=== PATIENT | male | born 2005 | race Caucasian/White ===

== ENCOUNTER 2025-01-02 20:05 | Inpatient (IN) ==
--- NOTE | 2025-01-02 20:15 | Emergency Department Note ---
Impression & Plan Open fracture of left forearm, Injury of forearm, left, Left forearm pain, Injury while playing basketball, Pain, Unspecified acquired deformity of left forearm, Fracture of radial shaft, left, open, Fracture of shaft of radius with ulna, open ED Provider Note CHIEF COMPLAINT: Left arm pain HISTORY OF PRESENTING ILLNESS: The patient is a 19-year-old male who presents to the emergency department state that he injured his left forearm while playing basketball. He states that he had come down and awkwardly fell on his outstretched left hand. He reports that there was blood and a significant amount of pain. Notes obvious deformity. A large Rex wrap is applied in triage. Patient confirms significant pain radiating up and down the arm, numbness and tingling, and is in obvious discomfort. No other injury, he did not hit his head, no LOC, the patient is not on blood thinners. REVIEW OF SYSTEMS: See HPI for pertinent positives and pertinent negatives. ALLERGIES: NKDA MEDICATIONS: Denies currently taking medications. PAST MEDICAL HISTORY: Denies past medical history. PHYSICAL EXAM: VITALS: Vitals are noted on the nurse's note and reviewed by myself. Vital signs stable. GENERAL: 19-year-old male, in obvious discomfort and pain, left arm wrapped, in no acute distress, nondiaphoretic, well-developed well-nourished. SKIN: Capillary refill less than 2 seconds. HEENT: Normocephalic. PERRLA. EOMI. Nares patent. Mucous membranes moist. Neck is supple without nuchal rigidity. MUSCULOSKELETAL: Obvious deformity appreciated left forearm. 1 cm open laceration from fracture appreciated on the forearm. 2+ radial ulnar pulses palpated. Patient is able to wiggle his fingers. Physical exam is extremely limited due to discomfort. Patient confirms that he can feel me touching him on all of his digits. Patient reports decrease sensation to his pinky and ring finger. Patient is bracing his left arm for comfort. No tenderness upon palpation to the elbow, humerus, or shoulder. NEURO: Patient was alert and oriented. No focal neurological deficits. DIFFERENTIAL DIAGNOSIS: Open fracture, fracture, dislocation, contusion, laceration, sprain, strain, among others. ED COURSE AND MEDICAL DECISION MAKING: HISTORY FROM INDEPENDENT HISTORIAN: The patient himself and his friends. MEDICATIONS GIVEN: Fentanyl 100 mcg IV, morphine 4 mg IV, Zofran 4 mg IV, Ancef 2 g, fentanyl 50 mcg IV, morphine 2 mg IV INTERPRETATION OF LABS: I interpreted the labs with full lab results as below in the lab section of this note. Pertinent lab results discussed in the MDM section below. INTERPRETATION OF IMAGING: Imaging studies were interpreted by myself and read by radiology as per the imaging section of this note. X-ray left forearm - Acute, displaced, angulated fracture of the proximal radius shaft. Acute, displaced, and angulated ulnar midshaft fracture. Soft tissue swelling. ESCALATION OF CARE CONSIDERED: Escalation of care was considered due to the patient falling on an outstretched left arm. When he presented he had obvious deformity and there was blood surrounding the Rex bandage. A type I open fracture of the left forearm was identified after physical exam and x-ray imaging. Patient's pain was controlled, he was immediately started on antibiotics, and he was admitted to the hospital by the orthopedic team. CONSULTATIONS: On-call orthopedic provider - I immediately reached out to the orthopedic on-call provider to inform them that I had a left forearm open fracture. There is a 1 cm opening on the base of the left forearm that is actively bleeding. The provider reviewed the x-ray images and discussed the case with Dr. Maria and recommended placing a Betadine gauze over the open wound and placing him in a sugar-tong splint for support. Orthopedics team admitted the patient and the plan is to evaluate him in the morning and perform surgery. MDM SUMMARY: I evaluate the 19-year-old male who presents to the emergency department due to an injury that occurred while playing basketball to his left forearm. Patient confirms significant pain radiating up and down his arm, he is sweating, confirms numbness and tingling, and is in obvious discomfort. He states he has obtained no other injury, did not hit his head, did not lose consciousness. Patient is not on blood thinners. When I evaluated the patient he is lying in bed and is in obvious discomfort and pain. The left arm is wrapped which was cut and removed by myself and the tech. Capillary refill is less than 2 seconds. Obvious deformity appreciated of left forearm. 1 cm open laceration from fracture appreciated on forearm. 2+ radial and ulnar pulses palpated bilaterally. Patient is able to wiggle his fingers. Physical exam limited due to discomfort. Patient confirms that he can feel me touching all of his digits. Reports decree sensation to the pinky and ring finger. He is bracing his left arm in support. No tenderness upon palpation to the elbow, humerus, or shoulder. Patient is extremely sweaty and in pain. Fentanyl 1000 mcg was given IV. His symptoms improved initially. Due to this being an open fracture 2 g Ancef was given immediately. Pain management was maintained with 4 mg morphine and Zofran. X-rays were ordered. X-ray showed acute displaced angulated fracture of the proximal radius shaft. Acute displaced and angulated ulnar midshaft fracture. This is a type I open fracture. Orthopedics consult can be seen in detail above. Betadine gauze was applied to the area that was open and the patient was placed in a sugar-tong for support. Patient confirms significant pain. Before the sugar-tong placement Fentanyl 50 mcg was additionally given for pain management. Splint was applied and neurovascular status was checked again. Patient had already been admitted to medicine by the orthopedic team had a bed ready upstairs. He was in discomfort after the placement of the splint. 2 mg morphine was given. The patient was taken upstairs and the remaining portion of his care was up to the discretion of the orthopedic team. All the patient's questions were answered. The patient was admitted in stable condition. CRITICAL CARE: I have personally spent greater than 30 minutes minutes of critical care time in the direct management of this patient. This includes bedside care, interpretation of diagnostic studies, and testing, discussion with consultants, patient, and family members, and other required patient management activities. This 30 minutes minutes is in excess of all separately billable procedures. DIAGNOSIS: Open fracture of left forearm, injury of left forearm, left forearm pain, injury while playing basketball, pain, unspecified acquired deformity of left forearm, fracture of radial shaft left, fracture of shaft of radius with ulna open The chart was completed utilizing [employer] Speech voice recognition software. Grammatical errors, random word insertions, pronoun errors, and incomplete sentences are an occasional consequence of this system due to software limitations, ambient noise, and hardware issues. Any formal questions or concerns about the content, text, or information contained within the body of this dictation should be directly addressed to the provider for clarification. Past Med/Surg History Problem List History of open reduction and internal fixation (ORIF) procedure Midshaft radius and grade 1 open ulna Injury of ulnar nerve at forearm level Fracture of shaft of radius with ulna, open (Acute) Fracture of radial shaft, left, open (Acute) Unspecified acquired deformity of left forearm (Acute) Pain (Acute) Injury while playing basketball (Acute) Left forearm pain (Acute) Injury of forearm, left (Acute) Open fracture of left forearm (Acute) Social History Smoking Status: Never smoker Hx Alcohol Use: No Hx Substance Use: No Preferred Language: Upper Sorbian Communication Ability: Effective Athletic Equipment Custodian Required: No Beliefs That Will Affect Care: None Current Living Situation: Alone Current Living Situation Comment: Lives on [facility]. Other Information That Helps Us Care for You: No Feels Safe at Home: Yes Safety Concerns: Feels Safe At This Time Assistive Devices: None Assistive Devices Comment: Independent at baseline. Allergies Allergies Allergy/AdvReac Type Severity Reaction Status Date / Time No Known Allergies Allergy Unverified 01/02/25 20:34 Home Meds Home Medications Medication Instructions Recorded Confirmed No Known Home Medications 01/03/25 01/03/25 Results & Data (ED) Vital Signs Vital Signs - 24 hr 01/02/25 20:10 Temperature 36.8 C Temperature Source Oral Pulse Rate 108 H Respiratory Rate 18 Respiratory Effort / Characteristics Non-Labored Spontaneous Respiratory Depth Normal Respiratory Pattern Regular Blood Pressure 113/82 Blood Pressure Mean 92 Pulse Oximetry 96 Oxygen Delivery Method Room Air Sepsis Recent Fever Within 48 Hours No Sepsis New/Unexplained Change in Mental Status N/A Sepsis Action Taken by Nursing No Action Required Administered Medications Acetaminophen (Acetaminophen 500 Mg Tab) 1,000 mg PO Q8 LEELA Stop: 02/02/25 21:59 Last Admin: 01/03/25 21:56 Dose: 1,000 mg Documented By: TKMonica Docusate Sodium (Docusate Sodium 100 Mg Cap) 100 mg PO BID LEELA Stop: 02/02/25 20:59 Last Admin: 01/03/25 21:55 Dose: 100 mg Documented By: JASON Sodium Chloride (Nss) 1,000 mls @ 100 mls/hr IV .Q10H LEELA Stop: 01/04/25 06:00 Last Admin: 01/03/25 22:02 Dose: 100 mls/hr Documented By: JASON Sennosides (Senna 8.6 Mg Tab) 17.2 mg PO HS LEELA Stop: 02/02/25 20:59 Last Admin: 01/03/25 21:56 Dose: 17.2 mg Documented By: JASON Discontinued Medications Bupivacaine HCl/Epinephrine Bitart (Bupivacaine/Epinephrine 0.5% Mpf 1:200,000 30 Ml Vial) Confirm Administered Dose 30 ml .ROUTE .[facility] Stop: 01/03/25 15:57 Last Admin: 01/03/25 20:00 Dose: 30 ml Documented By: [id number] Cefazolin Sodium (Cefazolin 2,000 Mg/15 Ml Iv Push) Confirm Administered Dose 2,000 mg IV .[facility] Stop: 01/03/25 15:56 Last Admin: 01/03/25 17:53 Dose: Not Given Documented By: SRL Fentanyl Citrate (Fentanyl Citrate Pf 100 Mcg/2 Ml Vial) 100 mcg IV NOW STA Stop: 01/02/25 20:33 Last Admin: 01/02/25 20:35 Dose: 100 mcg Documented By: CLAUDY Fentanyl Citrate (Fentanyl Citrate Pf 100 Mcg/2 Ml Vial) 50 mcg IV NOW STA Stop: 01/02/25 23:25 Last Admin: 01/02/25 23:28 Dose: 50 mcg Documented By: LENIN Cefazolin Sodium (Ancef 2000mg) 2,000 mg in 15 mls @ 3.75 mls/min IV NOW STA Stop: 01/02/25 20:40 Last Admin: 01/02/25 20:55 Dose: 3.75 mls/min Documented By: CLAUDY Sodium Chloride (Nss) 1,000 mls @ 60 mls/hr IV .[id number] LEELA Stop: 01/06/25 00:43 Last Admin: 01/03/25 20:35 Dose: Not Given Documented By: Infusion: 01/03/25 20:35 Dose: Infused Documented By: Admin: 01/03/25 01:09 Dose: 60 mls/hr Documented By: JASON Cefazolin Sodium (Ancef 2000mg) 2,000 mg in 15 mls @ 3.75 mls/min IV Q8 LEELA; P rotocol Stop: 01/03/25 08:46 Last Admin: 01/03/25 16:17 Dose: 3.75 mls/min Documented By: LIYA Ketorolac Tromethamine (Ketorolac 30 Mg/Ml Vial) 30 mg IV Q6H LEELA Stop: 01/08/25 00:43 Last Admin: 01/03/25 20:24 Dose: 30 mg Documented By: Admin: 01/03/25 11:35 Dose: 30 mg Documented By: Admin: 01/03/25 05:30 Dose: 30 mg Documented By: Admin: 01/03/25 01:09 Dose: 30 mg Documented By: JASON Morphine Sulfate (Morphine Sulfate 4 Mg/Ml 1 Ml Carp\Vial) 4 mg IV NOW STA Stop: 01/02/25 20:30 Last Admin: 01/02/25 21:09 Dose: 4 mg Documented By: CLAUDY Morphine Sulfate (Morphine Sulfate 2 Mg/Ml Carp) 1 mg IV Q2H PRN PRN Reason: Breakthrough Pain Stop: 01/16/25 22:52 Last Admin: 01/03/25 11:22 Dose: 1 mg Documented By: Admin: 01/03/25 03:17 Dose: 1 mg Documented By: JASON Morphine Sulfate (Morphine Sulfate 2 Mg/Ml Carp) 2 mg IV NOW STA Stop: 01/02/25 23:15 Last Admin: 01/02/25 23:40 Dose: 2 mg Documented By: LENIN Ondansetron HCl (Ondansetron Inj 2 Mg/Ml 2 Ml Vial) 4 mg IV NOW STA Stop: 01/02/25 20:30 Last Admin: 01/02/25 20:35 Dose: 4 mg Documented By: CLAUDY Oxycodone/Acetaminophen (Oxycodone/Acetaminophen 5mg/325mg Tab) 1 - 2 tab PO Q4H PRN PRN Reason: Pain Stop: 01/17/25 00:43 Last Admin: 01/03/25 13:33 Dose: 2 tab Documented By: Admin: 01/03/25 09:11 Dose: 1 tab Documented By: Admin: 01/03/25 02:32 Dose: 2 tab Documented By: JASON Tranexamic Acid (Tranexamic Acid / 0.7% Nacl 1000mg/100ml Bag) Confirm Administered Dose 1,000 mg IV .STK-MED ONE Stop: 01/03/25 16:57 Last Admin: 01/03/25 16:51 Dose: 1,000 mg Documented By: [facility] Tranexamic Acid (Tranexamic Acid 100 Mg/Ml 10 Ml Vial) 1,000 mg IV ONCE ONE Stop: 01/03/25 19:59 Last Admin: 01/03/25 19:17 Dose: 1,000 mg Documented By: [facility] Imaging Data Radiologist's Impression: Forearm X-Ray 01/02/25 20:35 Exam(s): XR LEFT FOREARM, 2 views EXAM: XR Left Forearm, 2 Views CLINICAL HISTORY: Reason for exam: open fracture, deformity. TECHNIQUE: Frontal and lateral views of the left forearm. COMPARISON: No relevant prior studies available. FINDINGS: Bones/joints: Acute, displaced, angulated fracture of the proximal radius shaft. Acute, displaced, and angulated ulnar midshaft fracture. No dislocation. Soft tissues: Soft tissue swelling. IMPRESSION: 1. Acute, displaced, angulated fracture of the proximal radius shaft. 2. Acute, displaced, and angulated ulnar midshaft fracture. 3. Soft tissue swelling. Electronically signed by: Urmila Garnica M.D. 01/02/25 23:27 PM Discharge Plan Visit Data Chief Complaint: Arm Pain Stated Complaint: L ARM PAIN ED Provider: Alexander Shah ED Midlevel Provider: Linda Rasmussen Discharge Problem: Open fracture of left forearm, Injury of forearm, left, Left forearm pain, Injury while playing basketball, Pain, Unspecified acquired deformity of left forearm, Fracture of radial shaft, left, open, Fracture of shaft of radius with ulna, open Patient Disposition: Admitted As Inpatient Condition: Good Discharge Instructions Interventions: ED Discharge Assessment Last Done: 01/03/25 01:01 Discharge Problem: Open fracture of left forearm Qualifiers: Encounter type: initial encounter Open fracture type: open type I or II Qualified Code(s): S52.92XB - Unspecified fracture of left forearm, initial encounter for open fracture type I or II Injury of forearm, left Qualifiers: Encounter type: initial encounter Qualified Code(s): S59.912A - Unspecified injury of left forearm, initial encounter Fracture of radial shaft, left, open Qualifiers: Encounter type: initial encounter Open fracture type: open type I or II Fracture morphology: oblique Fracture alignment: displaced Qualified Code(s): S52.332B - Displaced oblique fracture of shaft of left radius, initial encounter for open fracture type I or II Fracture of shaft of radius with ulna, open Qualifiers: Encounter type: initial encounter Open fracture type: open type I or II Laterality: left Qualified Code(s): S52.302B - Unspecified fracture of shaft of left radius, initial encounter for open fracture type I or II
[2025-01-02] MEDS: fentaNYL citrate PF 100 MCG/2 ML VIAL IV STA ×2 (20:35→23:28)
[2025-01-02] MEDS: ONDANSETRON INJ 2 MG/ML 2 ML VIAL IV STA (20:35)
[2025-01-02] MEDS: ceFAZolin 2000MG 2,000 MG/15 ML SYR IV STA (20:55)
[2025-01-02] MEDS: MoRPHine SULFATE 4 MG/ML 1 ML CARP\\VIAL IV STA (21:09)
--- NOTE | 2025-01-02 23:28 | XRay Report ---
Exam(s): XR LEFT FOREARM, 2 views EXAM: XR Left Forearm, 2 Views CLINICAL HISTORY: Reason for exam: open fracture, deformity. TECHNIQUE: Frontal and lateral views of the left forearm. COMPARISON: No relevant prior studies available. FINDINGS: Bones/joints: Acute, displaced, angulated fracture of the proximal radius shaft. Acute, displaced, and angulated ulnar midshaft fracture. No dislocation. Soft tissues: Soft tissue swelling. IMPRESSION: 1. Acute, displaced, angulated fracture of the proximal radius shaft. 2. Acute, displaced, and angulated ulnar midshaft fracture. 3. Soft tissue swelling. Electronically signed by: Urmila Garnica M.D. 01/02/25 23:27 PM
[2025-01-02] MEDS: MoRPHine SULFATE 2 MG/ML CARP IV STA (23:40)
[2025-01-03] MEDS: KETOROLAC 30 MG/ML VIAL IV SCH (01:09)
[2025-01-03] MEDS: SODIUM CHLORIDE 0.9% 1,000 ML IV SCH ×2 (01:09→22:02)
[2025-01-03] MEDS: oxyCODONE/ACETAMINOPHEN 5mg/325mg TAB PO PRN (02:32)
[2025-01-03] MEDS: MoRPHine SULFATE 2 MG/ML CARP IV PRN (03:17)
--- NOTE | 2025-01-03 09:12 | History & Physical Report ---
Date of Service January 03, 2025 Assessment & Plan (1) Fracture of shaft of radius with ulna, open: (2) Injury while playing basketball: Plan Grade 1 displaced, angulated forearm fracture of the midshaft ulna and proximal one third radial shaft. - Plan for OR this afternoon - ORIF left radius & ulna. - Maintain NPO. - Con't IV ABx. - Patient's family lives out of country -- father is flying in in a couple of days from [place]. - Patient lives in [facility], so may need a better recovery/rehab living situation post-op. - Has finals next week, and will need excuse for [employer]. 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 He was apparently up in the air and then came down awkwardly on an outstretched hand/arm. He had immediate pain and deformity of the left forearm, with some bleeding noted at the scene of the injury. He was brought to the [facility] emergency department, where x-rays demonstrated displaced, angulated open fractures of the left ulnar midshaft and proximal 1/3rd radial shaft. It was noted that the patient had an approximate 1 cm skin opening with bleeding noted, making this a grade 1 open fracture. [facility] [place] was contacted last evening by the ED provider, and after discussion, he had a Betadine soaked gauze placed on the skin wound, with a dressing, and then placement of a sugar-tong splint. Patient was admitted to orthopedics under Dr. Maria. Today, the patient notes that his pain is relatively well-controlled with the ordered medications. He says that he has been having some diminished sensation to his ulnar 3 digits, and any attempt at active flexion or extension of those digits causes forearm pain. In fact, he really cannot move those digits much at all, but does admit that he has significant pain with doing so. He says that his left thumb and index finger seem to have normal sensation and function, but they are also slightly weak with flexion and extension. Patient says that he lives in one of the [facility] dormitories on campus. He has no family in the country right now, but his father will be flying in within the next couple of days. He is due to take final exams next week, and inquires about a medical/doctor's excuse for classes and exams. Allergies Allergy/AdvReac Type Severity Reaction Status Date / Time No Known Allergies Allergy Unverified 01/02/25 20:34 Home Medications Medication Instructions Recorded Confirmed Type No Known Home Medications 01/03/25 01/03/25 History Past Med/Surg History Problem List Fracture of shaft of radius with ulna, open (Acute) Fracture of radial shaft, left, open (Acute) Unspecified acquired deformity of left forearm (Acute) Pain (Acute) Injury while playing basketball (Acute) Left forearm pain (Acute) Injury of forearm, left (Acute) Open fracture of left forearm (Acute) Social History Smoking Status: Never smoker Hx Alcohol Use: No Hx Substance Use: No Preferred Language: Nepalese Communication Ability: Effective Maintenance Mechanic Required: No Beliefs That Will Affect Care: None Current Living Situation: Alone Current Living Situation Comment: Lives on [facility]. Other Information That Helps Us Care for You: No Feels Safe at Home: Yes Safety Concerns: Feels Safe At This Time Assistive Devices: None Assistive Devices Comment: Independent at baseline. Review of Systems All systems reviewed & are unremarkable except as noted in HPI & below. Physical Exam GENERAL: Speech and cognition is intact. Mood and affect is appropriate. In no acute distress. HEAD: Normocephalic; atraumatic. NECK: Full ROM; trachea is midline; no cervical lymphadenopathy. CHEST: Regular chest respiration and excursion. EXTREMITIES: Full ROM and +5 strength of RUE. Sugar-tong splint in place to left upper extremity; well-fitting. Palpable brachial and radial pulses, 2+. Diminished sensation to ulnar 3 digits. Normal sensation to thumb and index finger. Weakness noted to all digits, more so to ulnar 3 digits, with immediate forearm pain upon passive extension. Weakness to active flexion of index finger and thumb, seeming to be limited by apprehension and pain. NEURO: CN II-XII grossly intact with no focal deficits noted. Unable to test sensation of the forearm or hand due to presence of the splint and Rex wrap. SKIN: No lesions, erythema, or rashes noted. Results & Data Results & Data Laboratory Results . Diagnostic Findings . Forearm X-Ray 01/02/25 20:35 Exam(s): XR LEFT FOREARM, 2 views EXAM: XR Left Forearm, 2 Views CLINICAL HISTORY: Reason for exam: open fracture, deformity. TECHNIQUE: Frontal and lateral views of the left forearm. COMPARISON: No relevant prior studies available. FINDINGS: Bones/joints: Acute, displaced, angulated fracture of the proximal radius shaft. Acute, displaced, and angulated ulnar midshaft fracture. No dislocation. Soft tissues: Soft tissue swelling. IMPRESSION: 1. Acute, displaced, angulated fracture of the proximal radius shaft. 2. Acute, displaced, and angulated ulnar midshaft fracture. 3. Soft tissue swelling. Electronically signed by: Urmila Garnica M.D. 01/02/25 23:27 PM PG Care Time/CCT Total # of Minutes Spent Total Time Spent with Patient: Total time spent is greater than 50% in coordination of care (as documented) at patient's floor/unit and/or counseling patient: Supervising Physician Co-Signing Physician Notes I independently evaluated the patient and discussed the case with the PA. I am in agreement with this note. He has a both bone forearm fracture that has an ulnar-sided laceration likely grade 1 injury. He also has some dull sensation in the small and ring finger ulnar nerve distribution. Active motion limited likely due to fracture pattern so difficult to evaluate. I reviewed the risks and benefits of surgical intervention today for his open fracture. Discussed the only alternative is cast treatment which will likely result in infection. The plan is to perform an irrigation and debridement and open reduction and internal fixation of the open radius and ulna fractures. We discussed the potential that his wounds will not be entirely closable today and will require subsequent surgery. We also discussed potential for infection despite the appropriate management for his open injury. 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 We discussed delaying that until at least I can see the wound is healed and is in a stable cast brace. Will plan to stay the night for 24 hours of progressive antibiotics following the surgery before discharge with the plan for aftercare. His father is on the way from [place] to facilitate aftercare. The risks and benefits of surgery were reviewed in detail and informed consent was obtained. [place] [address] INT INP/OBS CARE 2/55MIN (57 - DECISION FOR SURGERY) Patient Type New Medical Decision Making Moderate Complexity Diagnoses Fracture of shaft of radius with ulna, open S52.302B; S52.B Encounter type: initial encounter Laterality: left Open fracture type: open type I or II Injury while playing basketball Y93.67 Additional Codes Fx Elbow/Forearm - Radial AND ulnar shafts: Radial AND ulnar shafts ([id number]) (1) Fracture of shaft of radius with ulna, open Encounter type: initial encounter Laterality: left Open fracture type: open type I or II Qualified Code(s): S52.302B - Unspecified fracture of shaft of left radius, initial encounter for open fracture type I or II; S52.202B - Unspecified fracture of shaft of left ulna, initial encounter for open fracture type I or II
[2025-01-03] MEDS ORDERED: LACTATED RINGER'S 1,000 ML IV STA (15:54)
[2025-01-03] MEDS ORDERED: PROPOFOL IV EMULSION 10 MG/ML 20 ML VIAL IV ONE ×2 (15:59→20:09)
[2025-01-03] MEDS ORDERED: LIDOCAINE 2% 2 ML VIAL/AMP(20MG/ML) INFIL ONE (15:59)
[2025-01-03] MEDS ORDERED: ONDANSETRON INJ 2 MG/ML 2 ML VIAL ONE (15:59)
[2025-01-03] MEDS ORDERED: DEXAMETHASONE SOD INJ 4 MG/ML VIAL ONE (15:59)
[2025-01-03] MEDS ORDERED: ROCURONIUM BROMIDE 10 MG/ML 5 ML VIAL IV ONE ×3 (16:00→18:25)
[2025-01-03] MEDS ORDERED: LARYING-O-JET KIT (LTA) ONE (16:00)
[2025-01-03] MEDS ORDERED: fentaNYL citrate PF 100 MCG/2 ML VIAL ONE (16:00)
[2025-01-03] MEDS ORDERED: MIDAZOLAM HCL 1 MG/ML 2ML VIAL ONE (16:00)
[2025-01-03] MEDS ORDERED: fentaNYL citrate PF 100 MCG/2 ML VIAL IV PRN (16:05)
[2025-01-03] MEDS ORDERED: HYDROmorphone INJ 1 MG/ML SYRINGE ONE ×2 (16:05→16:55)
[2025-01-03] MEDS ORDERED: HYDROmorphone INJ 1 MG/ML SYRINGE IV PRN ×2 (16:05→19:18)
[2025-01-03] MEDS ORDERED: HYDROmorphone INJ 2 MG/ML SYR/VIAL IV PRN (16:05)
[2025-01-03] MEDS ORDERED: ePHEDrine sulfate 50 MG/ML AMP IV PRN (16:05)
[2025-01-03] MEDS ORDERED: ONDANSETRON INJ 2 MG/ML 2 ML VIAL IV PRN ×2 (16:05→19:18)
[2025-01-03] MEDS ORDERED: ATROPINE SULFATE 0.1 MG/ML 10ML SYR IV PRN (16:05)
--- NOTE | 2025-01-03 16:09 | Anesthesiology Consultation ---
Date of Service January 03, 2025 Assessment & Plan Chart Review Chart Review: Acceptable Risk for Surgery Consults Requested none ASA ASA1 Proposed Anesthesia Anesthesia Type: General History Surgery Operation Date: 01/03/25 13:00 Proposed Procedures p Left Open Radius & Ulna Fractures Open Reduction Internal Fixation - Nikhil Maria MD Height/Weight Height: 6 ft 4 in Weight: 88 kg Allergies Allergy/AdvReac Type Severity Reaction Status Date / Time No Known Allergies Allergy Unverified 01/02/25 20:34 Medications Home Medications Medication Instructions Recorded Confirmed Last Taken No Known Home Medications 01/03/25 01/03/25 Unknown Active Medications Generic Name Dose Route Start Last Admin Trade Name Freq PRN Reason Stop Dose Admin Sodium Chloride 1,000 mls @ 60 mls/hr 01/03/25 00:44 01/03/25 01:09 Nss IV 01/06/25 00:43 60 mls/hr .[id number] LEELA Administration Ketorolac Tromethamine 30 mg 01/03/25 00:44 01/03/25 11:35 Ketorolac 30 Mg/Ml Vial IV 01/08/25 00:43 30 mg Q6H LEELA Administration Morphine Sulfate 1 mg 01/02/25 22:53 01/03/25 11:22 Morphine Sulfate 2 Mg/Ml Carp IV 01/16/25 22:52 1 mg Q2H PRN Administration Breakthrough Pain Oxycodone/Acetaminophen 1 - 2 tab 01/03/25 00:44 01/03/25 13:33 Oxycodone/Acetaminophen 5mg/325mg Tab PO 01/17/25 00:43 2 tab Q4H PRN Administration Pain NPO Date Last Intake of Fluids: 01/02/25 Time Last Intake of Fluids: 18:30 Last Intake of Fluids Comment: sips with pills today Date Last Intake of Solids: 01/02/25 Time Last Intake of Solids: 18:00 Exercise / Class Metabolic Activity 1 > 8 Run/Swim/Ski/Tennis Past Anesthesia History No Hx of Anesthesia Complications History of PONV No Hx of PONV Social History Smoking Status: Never smoker Hx Alcohol Use: No Hx Substance Use: No substance use type: does not use Review of Systems ROS Unobtainable: All systems reviewed & are unremarkable except as noted in HPI & below Physical Exam Vital Signs Last Vital Signs Temp 36.8 C 01/03/25 15:44 Pulse 72 01/03/25 15:44 Resp 16 01/03/25 15:44 BP 160/77 H 01/03/25 15:44 Pulse Ox 100 01/03/25 15:44 O2 Del Method Room Air 01/03/25 15:44 Constitutional no acute distress ENMT Thyromental Distance: > or= 3.5 Finger Breadths Mallampati Class: I Neck normal visual inspection Respiratory normal respiratory effort Cardiovascular Rate/Rhythm: regular rate and regular rhythm Neurologic moves all extremities Psychiatric Orientation: alert and oriented x 3
[2025-01-03] MEDS: ceFAZolin 2000MG 2,000 MG/15 ML SYR IV SCH (16:17)
[2025-01-03] MEDS ORDERED: ACETAMINOPHEN 1000 MG/100 ML IV IV ONE (16:19)
[2025-01-03] MEDS ORDERED: KETAMINE HCL 10MG/ML SYR ONE (16:20)
[2025-01-03] MEDS ORDERED: SUGAMMADEX SODIUM 200 MG/2 ML VIAL IV ONE (16:42)
[2025-01-03] MEDS ORDERED: KETOROLAC 30 MG/ML VIAL ONE (16:42)
[2025-01-03] MEDS: TRANEXAMIC ACID / 0.7% NACL 1000MG/100ML BAG IV ONE (16:51)
[2025-01-03] MEDS: ceFAZolin 2,000 MG/15 ML IV PUSH IV ONE (17:53)
[2025-01-03] MEDS: TRANEXAMIC ACID 100 MG/ML 10 ML VIAL IV ONE (19:17)
[2025-01-03] MEDS ORDERED: METOCLOPRAMIDE HCL INJ 5 MG/ML 2 ML VIAL IV PRN (19:18)
[2025-01-03] MEDS ORDERED: bisacodyL 10 MG SUPP PR PRN (19:18)
[2025-01-03] MEDS ORDERED: HYDROmorphone INJ 0.5 MG/0.5 ML SYR IV PRN (19:18)
[2025-01-03] MEDS ORDERED: MAGNESIUM HYDROXIDE SUSP 30 ML UDC PO PRN (19:18)
[2025-01-03] MEDS ORDERED: diphenhydrAMINE Capsule 25 MG CAP PO PRN (19:18)
[2025-01-03] MEDS ORDERED: NALOXONE HCL 0.4 MG/1 ML VIAL/CARP IV PRN (19:18)
[2025-01-03] MEDS: BUPIVACAINE/EPINEPHRINE 0.5% MPF 1:200,000 30 ML VIAL ONE (20:00)
--- NOTE | 2025-01-03 21:15 | Operative Report ---
PG Post Operative Report Pre & Post Diagnosis Operation Date: 01/03/25 13:00 Pre-Op Diagnosis: Fracture of shaft of radius with ulna, open Post-Op Diagnosis: Fracture of shaft of radius with ulna, open I identified the patient and participated in the time-out.: Yes Procedure Operation Date: 01/03/25 13:00 Actual Procedures p Irrigation and Debridement Open Ulna Fracture, Open Reduction Internal Fixation Left Radius & Open Ulna Fractures (Left) - Nikhil Maria MD Surgeon Nikhil Maria MD Tree Loader [employer] Crystal English PA-C Estimated Blood Loss 50 Findings See Below Open midshaft ulna fracture with small butterfly fragment with approximately 1 cm clean laceration, irrigated and debrided through an extended 3 cm wound. Short oblique and comminuted ulna fracture was fixed with a 2.7 mm interfragmentary lag screw, 3.5 mm 7 hole hybrid locking plate, 3.5 mm cortical screws of 14, 16 x 4, 18 mm. The radial fracture was at the junction of the proximal and middle third and had a small butterfly fragment as well. Provisionally stabilized with 3.5 mm interfragmentary lag screw which was removed after plate fixation as it had broken out. Direct reduction achieved and 3.5 mm 7hole compression plate was applied with 3.5 mm cortical screws of 16 x 2 and 18 mm x 4 lengths. Specimens None Anesthesia Type General Regional Complications none Disposition Accompanied Patient To Recovery: Yes Disposition: Recovery Room Indications 19-year-old otherwise healthy and active male sustained a fall on outstretched arm resulting in an open both bone forearm fracture. He was admitted for IV antibiotics after wound care and splinting. Within 24 hours I recommended definitive treatment of his open fracture with irrigation debridement and open reduction internal fixation. I reviewed the risk, benefits and alternatives to surgical care in detail, as outlined in the preoperative consultation note. The patient, and his family by phone in [place], were all in agreement to proceed. Informed consent was confirmed in the preoperative holding area as he desired to proceed with the treatment I had described. Description of Procedure On the day of surgery, the patient was greeted in the preoperative holding area. The informed consent was reviewed and confirmed by myself and the patient. The patient identified the surgical site, and it was marked by me. The patient was then turned over to anesthesia. Patient was then taken to the operating room and placed upon the OR table. Anesthesia was induced. The airway was secured. The hand table was attached. Splint was taken down. We decontaminated the arm with a thorough scrub using alcohol on four by fours. A nonsterile tourniquet was placed on the forearm. The operative extremity was then prepped and draped in usual sterile fashion for wrist surgery. Chloroprep was used. Surgical timeout was called by the circulating nurse and verified by all present. Antibiotics and TXA had been infused, and equipment was available and functional. Attention was directed to the traumatic laceration. It was approximately 1 cm over the volar aspect of the ulna. This traumatized skin was excised and the wound was extended to a total of 3 cm. Ecchymotic tissue was excised sharply. The bone ends were delivered through the wound. This was the ulna. There was a comminuted fragment that was minimal and debrided. The bone ends were delivered through the wound for sharp debridement and thorough irrigation of 2 L of normal saline. Wound was then approximated using 2-0 nylon sutures. The limb was then resterilized with ChloraPrep and the field was redraped. All previously used instruments were discarded. Gown and gloves were all changed for a fresh field. An Esmarch was used to exsanguinate the extremity, and the tourniquet was inflated to 250 mmHg for a total time of 120 minutes. Attention was directed to the ulna open reduction internal fixation. A fresh approach was used as a traumatic wound was in an atypical case and on the volar aspect of the forearm. A standard ulnar border incision was made. Subcutaneous dissection was carried out to define the division between the volar and dorsal compartments. This area was exploited. Ecchymotic volar musculature was encountered and debrided. The fracture site was easily palpated. Periosteal dissection was carried out proximally and distally to allow enough cortical fixation on either side. Reduction clamps were placed and reduction was effected manually. This required some longitudinal traction and rotational reduction. I was able to get a lobster-claw clamp across the fracture that had some short obliquity to it. With that, is able to get interfragmentary lag screw. We chose a 2.7 millimeter screw which achieved excellent compression across the fracture and maintained the reduction for x-rays. Direct reduction with compression screw seemed adequate so a neutralization plate was chosen. For this reason a 3.5 mm 7 hole hybrid LCDCP plate. This will position on bone on direct visualization. Cortical screws were used to fasten the plate to bone. Fluoroscopy was used to confirm plate position. 6 cortices of cortical fixation was achieved on either side of the fracture with excellent security. Fluoroscopy was used to started the reduction and fixation. It was nearanato sammy. There was a small area of the butterfly fragment that had to be debrided with the open fracture so there was a gap in the bone but there was at least 90% cortical direct contact. With the ulna fixed and thoroughly irrigated, attention was directed to the volar approach of Nehemias to the radius. Midshaft region of the radius was identified and marked. Skin incision was made and dissection was carried out carefully to approach interval between the brachioradialis and FCR. Radial artery was identified and protected throughout. The brachioradialis was reflected laterally to show the perforating arteries which were ligated to allow the radial artery to be carefully retracted ulnarly. This interval was developed down to the fracture. There was some ecchymotic muscle that required debridement. There was fracture hematoma that required debridement. The superficial radial nerve was identified and protected with careful blunt retraction. Subperiosteal dissection was carried out proximally towards the radial tuberosity which appeared to be enough exposure for cortical fixation. Dissection was carried out distally with some pronation to identify that dorsal edge of the pronator. This was elevated carefully to allow placement of the plate on the volar side and to relieve tension for reduction. Lobster-claw clamps were then used to effective direct reduction. There was significant traction required to gain this despite paralysis with anesthesia. The fracture did brower and fairly stably. Had a short obliquity to it so an interfragmentary screw was placed. This was a 3.5 mm interfragmentary screw that gained enough provisional fixation to steady the reduction on fluoroscopy. Appear to be near anatomic reduction. There was a butterfly fragment that was found avulsed with the pronator. It was small and not able to be directly fixed. It was positioned into a defect at the fracture site. It was fragmented so it was impacted into the defect. With the direct reduction and fluoroscopic confirmation, we proceeded with a compression plate fixation. A similar 7 hole 3.5 mm LCDCP plate was then placed. I did bend the plate to accommodate the palmar bow of the radius. It was fastened to bone using a 3.5 mm cortical screw on the distal side. We then moved to the proximal side, and then moved [id number] fill all holes except the very middle 1. This gained 6 cortices of fixation on either side of the fracture with standard cortical screws and excellent purchase. The reduction and implant placement was started under fluoroscopy. Reduction seem to be near-anatomic. Interfragmentary screw seen long. When we looked at it, it had broken out through the fracture and was not gaining much stability, so it was removed. With the fracture fixation complete, thorough irrigation was performed of the palmar incision. Closure began. We direct attention first to the ulnar side. 0 Vicryl suture was used to approximate the dorsal and palmar compartment fascia to completely cover the plate. Skin edges were approximated using 2-0 Vicryl in the dermis, followed by jagruti given the low tension closure. Attention was then directed to the palmar side. The tourniquet was let down at the 2-hour isabela. There was significant soft tissue edema here though direct closure seem to be achievable. #2 nylon sutures were used in a trauma fashion to reapproximate the skin edges under moderate tension. I then used 2-0 Vicryl sutures sporadically in the dermal layer. The trauma sutures were relieved and we had good approximation. Given the tension, I opted for 2-0 nylon stitches in a vertical mattress fashion. These were sequentially positioned for moderately attention to closure. Skin remained viable with less than 2-second cap refill. Compartments remain soft. He had a palpable radial pulse. The skin was cleansed and then dressed. Wounds were dressed with sterile Xeroform, sterile gauze, and ABD. Abundant web roll was placed in a sugar-tong Ortho-Glass splint was placed. Patient tolerated the procedure well, recovered from anesthesia in the operating room, and was transported to the recovery area in stable condition. Disposition: The patient will remain admitted for 24 hours of antibiotic preoperative prophylaxis given the open fracture. The patient should be nonweightbearing to the operative extremity. Range of motion as tolerated within the limits of the splint. Routine postoperative pain medications will be prescribed. Repeat x-rays showed the performed at the first follow-up appointment in 10-14 days. Physician engineer first assistant attestation: Crystal Romo PA-C was present and scrubbed for the duration of the case. The PA was essential to prepping/draping, patient positioning, retraction, and assistance with wound closure. In particular, skilled assistance was necessary to assist with various reduction maneuvers for this both bone forearm fracture. I attest to the content of the Intraoperative Record and any orders documented therein. Any exceptions are noted below.
--- NOTE | 2025-01-03 21:18 | Anesthesiology Progress Note ---
Date of Service January 03, 2025 Anesthesia Post Procedure Vital Signs Vital Signs: Temp Pulse Pulse Resp BP Pulse Ox O2 Del Method 01/03/25 21:00 75 14 148/81 H 95 Oxymask 01/03/25 20:50 77 16 144/76 H 95 Oxymask 01/03/25 20:40 36 C L 74 14 133/75 95 Oxymask 01/03/25 15:44 36.8 C 72 16 160/77 H 100 Room Air 01/03/25 14:54 36.5 C 55 L 16 148/87 H 97 Room Air 01/03/25 07:57 36.5 C 62 16 145/83 H 100 Room Air 01/03/25 00:20 36.8 C 69 18 133/85 99 Room Air 01/02/25 23:30 63 22 143/77 H 94 Room Air O2 Flow Rate 01/03/25 21:00 14 01/03/25 20:50 16 01/03/25 20:40 12 01/03/25 15:44 01/03/25 14:54 01/03/25 07:57 01/03/25 00:20 01/02/25 23:30 Pain Intensity Left Wrist: Pain Intensity: 6 Left Arm: Pain Intensity: 7 Transfer of Care Handoff Completed per policy Notes Mental Status: alert / awake / arousable Patient Amnestic to Procedure: Yes Nausea / Vomiting: adequately controlled Pain: adequately controlled Airway Patency, RR, SpO2: stable & adequate BP & HR: stable & adequate Hydration State: stable & adequate Anesthetic Complications: no major complications apparent and Pt Satisfied with anesthetic care
--- NOTE | 2025-01-03 21:23 | Orthopedic Progress Note ---
Date of Service January 03, 2025 Assessment & Plan (1) Fracture of shaft of radius with ulna, open: (2) Injury of ulnar nerve at forearm level: (3) History of open reduction and internal fixation (ORIF) procedure: Plan Appears neurovascularly intact to his hand, with the exception of small persistent sensory deficit on the small finger from the injury pattern. Motor intact. Will monitor. Subjective In the PACU reports tolerable pain Review of Systems All systems reviewed & are unremarkable except as noted in HPI & below. Physical Exam Left extremity: Less than 2-second cap refill. Able to extend all fingers and thumb. Makes an okay sign. Finger abduction intact in splint intact thumb IP motion. Sensation intact throughout the palmar region and dorsal hand. Dull sensation in the small finger but able to discriminate touch -unchanged from preop Results & Data Results & Data Laboratory Results . Diagnostic Findings . PG Care Time/CCT Total # of Minutes Spent Total Time Spent with Patient: Total time spent is greater than 50% in coordination of care (as documented) at patient's floor/unit and/or counseling patient: Coding Level of Care Code 01694 Post Operative Follow-Up Diagnoses Fracture of shaft of radius with ulna, open S52.302B; S52.B Encounter type: initial encounter Laterality: left Open fracture type: open type I or II Injury of ulnar nerve at forearm level S54.00XA History of open reduction and internal fixation (ORIF) procedure Z98.890 (1) Fracture of shaft of radius with ulna, open Encounter type: initial encounter Laterality: left Open fracture type: open type I or II Qualified Code(s): S52.302B - Unspecified fracture of shaft of left radius, initial encounter for open fracture type I or II; S52.202B - Unspecified fracture of shaft of left ulna, initial encounter for open fracture type I or II
[2025-01-03] MEDS: DOCUSATE SODIUM 100 MG CAP PO SCH (21:55)
[2025-01-03] MEDS: ACETAMINOPHEN 500 MG TAB PO SCH (21:56)
[2025-01-03] MEDS: SENNA 8.6 MG TAB PO SCH (21:56)
[2025-01-03] MEDS ORDERED: Nursing to Pharmacy Communication SCH (22:15)
--- NOTE | 2025-01-04 00:53 | XRay Report ---
Exam(s): XR LEFT FOREARM, 2 views EXAM: XR Left Forearm, 2 Views CLINICAL HISTORY: s/p left midshaft radius and ulna ORIF. TECHNIQUE: Frontal and lateral views of the left forearm. COMPARISON: 01/02/2025. FINDINGS: Skin jagruti overlie the mid forearm. Underlying placement of metal plates in both the radius and ulna. Mid shaft ulnar plate with multiple osseous screws are present with an atomic alignment of the fracture fragments. An angulated transcortical screw is present. A plate with multiple intraosseous screws transfix a proximal radial shaft comminuted fracture in near-anatomic position. Remainder examination is unchanged. IMPRESSION: Status post interval ORIF of radial and ulnar fractures as described above. Electronically signed by: Garrett Frazier M.D. 01/04/25 00:52 AM
[2025-01-04] MEDS: ceFAZolin 2000MG 2,000 MG/15 ML SYR IV SCH (01:02)
[2025-01-04] MEDS: oxyCODONE HCL IR 5 MG TAB (IMMEDIATE RELEASE) PO PRN (03:24)
--- NOTE | 2025-01-04 08:09 | Fluoroscopy Report ---
INTRAOPERATIVE FLUOROSCOPIC IMAGES: CLINICAL HISTORY: Left radial and ulnar fixation. Fluoroscopy time: 17.6 seconds Number of fluoroscopic images: 13 Ka,r: 0.3 478 mGy. FINDINGS: Fluoroscopy was [reduction and internal fixation of the left radial and ulnar fractures wit h plate and screws. Fracture alignment has markedly improved and appears anatomic. Hardware is intact . No unexpected radiopaque foreign bodies are present. IMPRESSION: Fluoroscopy provided during open reduction and internal fixation of the left radial and u lnar fractures. Electronically signed by: Aneudy Araya M.D. 01/04/2025 8:08 AM
--- NOTE | 2025-01-04 08:19 | Orthopedic Progress Note ---
Date of Service January 04, 2025 Assessment & Plan (1) History of open reduction and internal fixation (ORIF) procedure: Operation Date: 01/03/25 13:00 Actual Procedures p Irrigation and Debridement Open Ulna Fracture, Open Reduction Internal Fixation Left Radius & Open Ulna Fractures (Left) - Nikhil Maria MD POD 1 from the surgery above. - Continue the use of the sling and the splint. Splint will remain on for 2 weeks. - Should work with PT/OT today for mobilization. - On his forearm x-rays from last evening, there may be an abnormality in the carpal bones. We are going to order a 3 view left wrist x-ray. If this is still abnormal, we will plan to order a CT of the left wrist. We will keep an eye on his x-rays when they come back. - Pain control as per protocol - Stable for discharge once left wrist imaging is completed, he works with PT/OT. States that his dad will not be in the area until about 7:00 tonight to pick him up his his father is traveling from [place] and is currently on a flight from [place]. - He should follow-up with our outpatient orthopedic clinic in 2 weeks for splint removal, x-rays and wound check. (2) Injury of ulnar nerve at forearm level: Subjective Operation Date: 01/03/25 13:00 Actual Procedures p Irrigation and Debridement Open Ulna Fracture, Open Reduction Internal Fixation Left Radius & Open Ulna Fractures (Left) - Nikhil Maria MD Patient is postop day 1 from a left midshaft radius and ulna open fracture ORIF. States he is doing well. His mother is on the phone at my visit today. He states that he does still have some numbness in his left pinky finger. Also states he has a little bit of numbness in his left thumb, however he has good motion in all of the fingers. States that his pain is under control currently. He will be following up with the surgeon in the next few weeks in [place]. Review of Systems All systems reviewed & are unremarkable except as noted in HPI & below. Physical Exam General: Alert and oriented. No acute distress. Left upper extremity: He is in a sugar-tong splint. He is wearing his sling. He is neurovascularly intact in the left upper extremity besides some numbness/paresthesias he is feeling in his left pinky finger. He is able to give a good thumbs up with his left thumb. He has good motion and strength of his left thumb. Results & Data Results & Data Laboratory Results . Diagnostic Findings I did review his PACU x-rays of the left forearm. Adequate fracture reduction with internal fixation. No hardware complication. Does seem to be an abnormality with the carpal bones at the wrist. May be due to positioning, however we are going to order additional imaging to rule out any dislocation/subluxation. PG Care Time/CCT Total # of Minutes Spent Total Time Spent with Patient: Total time spent is greater than 50% in coordination of care (as documented) at patient's floor/unit and/or counseling patient: Coding Level of Care Code 19411 Post Operative Follow-Up Diagnoses History of open reduction and internal fixation (ORIF) procedure Z98.890 Injury of ulnar nerve at forearm level S54.00XA
--- NOTE | 2025-01-04 08:23 | Discharge Summary ---
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 He was apparently up in the air and then came down awkwardly on an outstretched hand/arm. He had immediate pain and deformity of the left forearm, with some bleeding noted at the scene of the injury. He was brought to the [facility] emergency department, where x-rays demonstrated displaced, angulated open fractures of the left ulnar midshaft and proximal 1/3rd radial shaft. It was noted that the patient had an approximate 1 cm skin opening with bleeding noted, making this a grade 1 open fracture. [facility] was contacted last evening by the ED provider, and after discussion, he had a Betadine soaked gauze placed on the skin wound, with a dressing, and then placement of a sugar-tong splint. Patient was admitted to orthopedics under Dr. Maria. Today, the patient notes that his pain is relatively well-controlled with the ordered medications. He says that he has been having some diminished sensation to his ulnar 3 digits, and any attempt at active flexion or extension of those digits causes forearm pain. In fact, he really cannot move those digits much at all, but does admit that he has significant pain with doing so. He says that his left thumb and index finger seem to have normal sensation and function, but they are also slightly weak with flexion and extension. Patient says that he li ves in one of the [employer] dormitories on campus. He has no family in the country right now, but his father will be flying in within the next couple of days. He is due to take final exams next week, and inquires about a medical/doctor's excuse for classes and exams. Admission Exam (Per Admitting) GENERAL: Speech and cognition is intact. Mood and affect is appropriate. In no acute distress. HEAD: Normocephalic; atraumatic. NECK: Full ROM; trachea is midline; no cervical lymphadenopathy. CHEST: Regular chest respiration and excursion. EXTREMITIES: Full ROM and +5 strength of RUE. Sugar-tong splint in place to left upper extremity; well-fitting. Palpable brachial and radial pulses, 2+. Diminished sensation to ulnar 3 digits. Normal sensation to thumb and index finger. Weakness noted to all digits, more so to ulnar 3 digits, with immediate forearm pain upon passive extension. Weakness to active flexion of index finger and thumb, seeming to be limited by apprehension and pain. NEURO: CN II-XII grossly intact with no focal deficits noted. Unable to test sensation of the forearm or hand due to presence of the splint and Rex wrap. SKIN: No lesions, erythema, or rashes noted. Principal Diagnosis Same as "Discharge Diagnosis" noted below under Discharge Instructions. Discharge Exam General: Alert and oriented. No acute distress. Left upper extremity: He is in a sugar-tong splint. He is wearing his sling. He is neurovascularly intact in the left upper extremity besides some numbness/paresthesias he is feeling in his left pinky finger. He is able to give a good thumbs up with his left thumb. He has good motion and strength of his left thumb. Discharge Data Procedures Performed Operation Date: 01/03/25 13:00 Actual Procedures p Irrigation and Debridement Open Ulna Fracture, Open Reduction Internal Fixation Left Radius & Open Ulna Fractures (Left) - Nikhil Maria MD Ordered Studies 01/03/25 FL wrist LT 3V RTN Routine Hospital Course (1) History of open reduction and internal fixation (ORIF) procedure: Operation Date: 01/03/25 13:00 Actual Procedures p Irrigation and Debridement Open Ulna Fracture, Open Reduction Internal Fixation Left Radius & Open Ulna Fractures (Left) - Nikhil Maria MD POD 1 from the surgery above. - Continue the use of the sling and the splint. Splint will remain on for 2 weeks. - Should work with PT/OT today for mobilization. - On his forearm x-rays from last evening, there may be an abnormality in the carpal bones. We are going to order a 3 view left wrist x-ray. If this is still abnormal, we will plan to order a CT of the left wrist. We will keep an eye on his x-rays when they come back. - Pain control as per protocol - Stable for discharge once left wrist imaging is completed, he works with PT/OT. States that his dad will not be in the area until about 7:00 tonight to pick him up his his father is traveling from [place] and is currently on a flight from [place]. - He should follow-up with our outpatient orthopedic clinic in 2 weeks for splint removal, x-rays and wound check. (2) Injury of ulnar nerve at forearm level: PG Care Time/CCT Total # of Minutes Spent Total Time Spent with Patient: Total time spent is greater than 50% in coordination of care (as documented) at patient's floor/unit and/or counseling patient: Discharge Plan Discharge Items Patient Disposition: Home - Self-Care Reason For Visit: LEFT FOREARM BOTH BONE GRADE 1 OPEN FX Discharge Diagnosis: s/p left wrist ORIF Condition on Discharge: Good Activity: Per Instructions section Non-emergency contact: Surgeon Call non-emergency contact if: your pain is not controlled, you have a fever and your temperature is above 101.5 Follow-up/Referrals: Nikhil Maria MD [Surgeon] - 01/16/25 8:00 am [facility] [Primary Care Provider] - Diet: Regular Addtl Attending Provider Instructions: Nikhil Maria M.D. [facility] [address] [place] [address] POSTOPERATIVE INSTRUCTIONS UPPER EXTREMITY FRACTURE INSTRUCTIONS SPLINT/WOUND CARE: Leave your splint in place and keep the area clean and dry. Your splint will be taken down at your postop clinic visit. Do not remove it yourself. You should be completely non-weightbearing. Rest the arm in the sling for comfort. You may adjust the sling as needed. You can flex and extend and wiggle your fingers as much as the splint allows, when tolerable. Finger motion will help with swelling and is encourage. You can type, use your smartphone, and/or mouse as tolerated. If the splint becomes wet, dirty, uncomfortable, or loose, please call the Orthopedic Clinic ([phone]) to arrange to be evaluated. Please call the Ortho Clinic if you have any questions or concerns. PAIN CONTROL: Elevation is your best friend. Swelling is simply fluid. Elevation will allow the fluid to run down hill, reduce swelling, and decrease pain. Medications: 1. Oxycodone (OxyIR) 1-2 tablet(s) orally every 4-6 hours for pain as needed. Use with Tylenol. Begin tapering OxyIR as soon as possible: reduce from 2 to 1 pills per dose, then spread out the doses over greater time intervals, then try to use only for therapy or for comfort while sleeping. Continue to use regular Tylenol until pain subsides. 2. OVER THE COUNTER Tylenol (generic = acetaminophen): 975-1000 mg every 8 hours orally. Regular dosing of Tylenol is an important part of your baseline pain control. Do not taper Tylenol until you have successfully tapered off of regular OxyIR. Do not take more than 3000mg of Tylenol per day. 3. Zofran: 1 tablet orally every 6 hours as needed for nausea related to anesthesia, pain, and narcotic medications. 4. Colace (100mg): take 1-2 tabs twice daily to avoid constipation from OxyIR or other narcotics. OVER THE COUNTER WHEN TO CALL. If you develop any of the following symptoms, please contact the [facility] at [phone] or the Emergency room (after hours): Temperature greater than 101 taken twice, difficulty breathing, bleeding, fever and chills, increased pain unrelieved by pain meds, uncomfortable cast or splint, or any other concerns. Pending Studies at Discharge: No Stand-Alone Forms: My [facility] [employer], Smoking Cessation Medications and DC Order Prescriptions: New ondansetron 4 mg tablet,disintegrating 4 mg PO Q6H PRN (Reason: nausea and vomiting) Qty: 10 0RF No Action oxycodone 5 mg tablet 5 - 10 mg PO Q6H MDD 6 tablets PRN (Reason: post operative pain) Qty: 18 0RF Discharge Orders: Discharge Order (Routine); Ordered 01/04/25 Ordered By: Crystal Romo Admission Data Admit Date/Time: 01/02/25 22:52 Attending Provider: Nikhil Maria Admit Provider: Nikhil Maria Primary Care Provider: [facility] Other Interventions: Discharge Summary Assessment (RN) Last Done: 01/04/25 07:30
--- NOTE | 2025-01-04 09:01 | XRay Report ---
XR wrist 3V HISTORY: 19 years-old Male rule out carpal dislocation acute forearm pain status post fracture COMPARISON: 01/02/2025 TECHNIQUE: 3 views of the left wrist FINDINGS: Bony detail is limited secondary to artifact from overlying casting material. Partially imaged forear m fractures with ORIF hardware and skin jagruti. No additional acute fracture or dislocation is ident ified. Mild diffuse soft tissue swelling. IMPRESSION: 1. Partially imaged forearm fractures with ORIF hardware and skin jagruti. 2. No definite acute fracture or dislocation identified involving the wrist, however evaluation is li mited secondary to overlying casting material. ACT 112: Negative or not required by law. The above report was generated using voice recognition software. It may contain grammatical, syntax o r spelling errors. Electronically signed by: Richmond Abraham M.D. 01/04/2025 8:59 AM
[2025-01-04] MEDS: MULTIVITAMIN TAB PO SCH (09:39)
[2025-01-04 20:08] VITALS: BP 151/76; PULSE 65; RESP 18; TEMP 97.7; O2SAT 98
[2025-01-04] MEDS: oxyCODONE IR HOME PACK PO ONE (22:05)
== END 2025-01-04 22:30 | disposition home or self-care (01) | DRG 512 ==
LOC: EDBD → ED 20:05 → 3W 22:52
DX: X58.XXXA Exposure to other specified factors, initial encounter; Y92.39 Other specified sports and athletic area as the place of occurrence of the external cause; S52.392B Other fracture of shaft of radius, left arm, initial encounter for open fracture type I or II; Y93.67 Activity, basketball; S52.292B Other fracture of shaft of left ulna, initial encounter for open fracture type I or II